=== PATIENT | female | born 1990 | race Two or more races ===

== ENCOUNTER 2017-12-04 23:18 | Emergency (ER) | payer SELFPAY ==
[~2017-12-04] VITALS: Ht 154.9 cm; Wt 72.1 kg
[2017-12-04 23:42] VITALS: BP 133/80
== END 2017-12-05 00:43 | disposition home or self-care (01) ==
LOC: ER 23:28
DX: R09.89 Other specified symptoms and signs involving the circulatory and respiratory systems (principal); E03.9 Hypothyroidism, unspecified
CPT/HCPCS: 99281; A4606; Z7610; Z7502